=== PATIENT | female | born 1945 | race Hispanic/Latino ===

== ENCOUNTER 2019-12-01 23:04 | Inpatient (IN) | payer MEDICARE ==
[~2019-12-01] VITALS: Ht 167.6 cm; Wt 88.4 kg
[2019-12-02] VITALS (7 sets, daily range): BP systolic 109–150; BP diastolic 27–84
[2019-12-02] MEDS ORDERED: ONDANSETRON HCL 4 MG/2 ML VIAL ONE (02:51)
[2019-12-02] MEDS ORDERED: MORPHINE SULFATE 2 MG/ML 1ML SYG ONE (03:44)
[2019-12-02] MEDS ORDERED: MORPHINE SULFATE 2 MG/ML 1ML SYG IVP ONE ×2 (03:45→05:45)
[2019-12-02] MEDS ORDERED: ONDANSETRON HCL 4 MG/2 ML VIAL IVP SCH (04:00)
[2019-12-02] MEDS ORDERED: HYDROXYZINE HCL 25 MG TABLET PO SCH (05:45)
[2019-12-02] MEDS ORDERED: ONDANSETRON HCL 4 MG/2 ML VIAL IVP PRN (05:45)
[2019-12-02] MEDS ORDERED: HYDROXYZINE HCL 25 MG TABLET ONE (05:53)
[2019-12-02] MEDS: ERGOCALCIFEROL (VITAMIN D2) 50,000 UNIT CAPSULE PO SCH ×2 (06:15→06:43)
[2019-12-02] MEDS ORDERED: DOXYCYCLINE 100MG+NS 250ML IV SCH (06:15)
[2019-12-02] MEDS ORDERED: GLUCAGON 1MG KIT 1 MG ML IM PRN (06:15)
[2019-12-02] MEDS ORDERED: DEXTROSE 50%-WATER 50 ML DISP.SYRIN IV PRN (06:15)
[2019-12-02 06:29] LABS: BASOPHILS % (AUTO) 0.2 % (0.0-5.0); HEMATOCRIT 35.1 % (36-48); LYMPHOCYTES % (AUTO) 4.4 % (21.0-51.0); MEAN CORPUSCULAR HEMOGLOBIN 31.5 pg (27.0-33.0); MEAN CORPUSCULAR VOLUME 95.4 fL (79-99); NEUTROPHILS % (AUTO) 90.7 % (40.0-77.0); NUCLEATED RED BLOOD CELLS 0.9 % (0.0-0.19); PLATELET COUNT (AUTO) 111 K/uL (130-400); RED BLOOD CELL COUNT(AUTO) 3.68 MIL/uL (4.00-5.50); RED CELL DISTRIBUTION WIDTH 14.1 % (11.0-15.5); WHITE BLOOD COUNT (AUTO) 18.1 K/uL (4.8-10.8)
[2019-12-02] MEDS ORDERED: GUAIFENESIN-DM 200/20 MG 10 ML PO PRN (06:30)
[2019-12-02] MEDS ORDERED: ONDANSETRON HCL 4 MG/2 ML VIAL IV PRN (06:30)
[2019-12-02] MEDS: CEFTRIAXONE SODIUM 1 GM IVP SCH ×2 (06:40→07:03)
[2019-12-02 07:13] LABS: ALBUMIN 2.4 g/dL (3.5-5.0); BILIRUBIN,TOTAL 0.7 mg/dL (0.2-1.0); CREATININE 1.3 mg/dL (0.5-1.5); POTASSIUM 4.1 mmol/L (3.5-5.1)
[2019-12-02] MEDS ORDERED: INSULIN HUMULIN R 100 UNIT/ML 3ML SQ SCH (07:30)
[2019-12-02 08:00] LABS: CRP QUANTITATIVE 343.1 mg/L (0.00-9.0)
[2019-12-02 08:06] LABS: ABG BASE EXCESS -21.4 mmol/L (-2.0-3.0); ABG HCO3 6.3 mmol/L (21.0-28.0); ABG OXYGEN SATURATION 94.7 % (95.0-99.0); ABG PCO2 20 mmHg (32-45)
[2019-12-02] MEDS ORDERED: SODIUM BICARB 50MEQ 50ML VIAL ONE ×2 (08:13→08:22)
[2019-12-02] MEDS ORDERED: ENOXAPARIN SODIUM 40 MG/0.4 ML SYRINGE SQ SCH (09:00)
[2019-12-02] MEDS ORDERED: FAMOTIDINE/PF 20 MG/2 ML VIAL IV SCH (09:00)
[2019-12-02] MEDS ORDERED: ASCORBIC ACID 500 MG TAB PO SCH (09:00)
[2019-12-02] MEDS ORDERED: DOXYCYCLINE 100MG+NS 250ML 250 ML IV SCH (09:00)
[2019-12-02] MEDS ORDERED: PROPOFOL 1000 MG/100 ML 100 ML IV SCH (09:00)
[2019-12-02] MEDS ORDERED: SODIUM BICARB 8.4% 50ML SYRING 150 MEQ in DEXTROSE 5%-WATER 1,000 ML IV SCH ×2 (09:00→10:30)
[2019-12-02] MEDS ORDERED: ACETYLCYSTEINE 600 MG CAPSULE PO SCH (09:00)
[2019-12-02] MEDS ORDERED: METHYLPREDNISOLONE SOD SUCC 40MG/ML 1ML IVP SCH (09:00)
[2019-12-02] MEDS ORDERED: ZINC SULFATE 220 CAPSULE PO SCH (09:00)
[2019-12-02 09:17] LABS: ABG BASE EXCESS -21.6 mmol/L (-2.0-3.0); ABG HCO3 7.9 mmol/L (21.0-28.0); ABG OXYGEN SATURATION 71.3 % (95.0-99.0); ABG PCO2 30 mmHg (32-45)
--- NOTE | 2019-12-02 09:20 | NUR ---
Pt was confused, Respirations of 42 on High flow 60% and NRB sating at low 60s, pt intubated, called report to ICU nurse, Lactic 16.1 MD Dick [employer] notified, D-dimer >10,000 MD Dick notified, sepsis protocol ordered, no new orders given
[2019-12-02] MEDS ORDERED: VANCOMYCIN PROTOCOL PER PHARMACY IV SCH (09:45)
[2019-12-02] MEDS ORDERED: ZOSYN 3.375GM+NS 50ML 50 ML IV SCH (09:45)
[2019-12-02] MEDS ORDERED: SODIUM CHLORIDE 0.9% 1000ML 1,000 ML IV SCH (09:45)
[2019-12-02] MEDS ORDERED: COMPOUND IV REFRIGERATED 1 EACH IVSOLN MISC PRN (10:00)
[2019-12-02] MEDS ORDERED: VANCOMYCIN 1.25 GM in SODIUM CHLORIDE 0.9% 250 ML IV SCH (10:00)
--- NOTE | 2019-12-02 10:34 | NUR ---
Pt received from floor pale and dusky in color, cool extremities 02 sat 70%. RT called. ETT in place, vent settings checked HR dropped from 110-80. RN unable to feel pulse. Cely carballo called at 1038am ACLS protocol followed. Time of 1102.
[2019-12-02] MEDS ORDERED: ENOXAPARIN SODIUM 100 MG/1 ML SQ SCH (21:00)
[2019-12-02] MEDS ORDERED: ENOXAPARIN SODIUM 1 MG/KG SQ SCH (21:00)
== END 2019-12-02 10:38 | disposition expired | DRG 871 ==
LOC: 4DH 12-02 02:24 → 2BH 12-02 09:10
PROVIDERS: ADMIT Internal Medicine; ATTEND Internal Medicine
PROC: 5A1935Z Respiratory Ventilation, Less than 24 Consecutive Hours (ICD-10-PCS; principal; 2019-12-02)
PROC: 0BH17EZ Insertion of Endotracheal Airway into Trachea, Via Natural or Artificial Opening (ICD-10-PCS; 2019-12-02)
PROC: 5A12012 Performance of Cardiac Output, Single, Manual (ICD-10-PCS; 2019-12-02)
DX: A41.89 Other specified sepsis (principal); U07.1 COVID-19; J96.01 Acute respiratory failure with hypoxia; J12.89 Other viral pneumonia; E87.2 Acidosis; R65.20 Severe sepsis without septic shock; E11.9 Type 2 diabetes mellitus without complications; I10 Essential (primary) hypertension; K72.90 Hepatic failure, unspecified without coma; I49.01 Ventricular fibrillation
CPT/HCPCS: 31500; 36415; 36600; 71045; 74018; 80053; 82728; 82803; 82948; 83605; 83615; 84145; 85025; 85378; 86140; 92950; 93005; 94002; G0378; J0696; J2405; J3370; J3490; J7050; J7070